=== PATIENT | male | born 1990 ===

== ENCOUNTER 2020-05-11 17:34 | Emergency (ER) | payer SELFPAY ==
--- NOTE | 2020-05-11 17:49 | Emergency Department Report ---
Blank Doc - Documentation Documentation: 29-year-old male that presents with mixed dialysis today. This initial assessment/diagnostic orders/clinical plan/treatment(s) is/are subject to change based on patient's health status, clinical progression and re- assessment by fellow clinical providers in the ED. Further treatment and workup at subsequent clinical providers discretion. Patient/guardians urged not to elope from the ED as their condition may be serious if not clinically assessed and managed. Initial orders include: 1- Patient sent to [facility] for further evaluation and treatment 2- labs
[2020-05-11 18:17] LABS: Basophils # (Auto) 0.1 K/mm3 (0.0-0.1); Basophils % (Auto) 1.1 % (0.0-1.8); Eosinophils # (Auto) 0.1 K/mm3 (0.0-0.4); Eosinophils % (Auto) 0.9 % (0.0-4.3); Hematocrit 33.2 % (35.5-45.6); Hemoglobin 10.7 gm/dl (11.8-15.2); Lymphocytes # (Auto) 1.7 K/mm3 (1.2-5.4); Lymphocytes % (Auto) 18.2 % (13.4-35.0); Mean Corpuscular HGB Conc 32 % (32-34); Mean Corpuscular Volume 80 fl (84-94); Monocytes # (Auto) 0.9 K/mm3 (0.0-0.8); Platelet Count 240 K/mm3 (140-440); Red Blood Count 4.13 M/mm3 (3.65-5.03); Red Cell Distribution Width 15.9 % (13.2-15.2)
[2020-05-11 18:33] LABS: Albumin 3.8 g/dL (3.9-5); Calcium 9.1 mg/dL (8.4-10.2)
--- NOTE | 2020-05-11 20:59 | Emergency Department Report ---
ED General Adult HPI - General Chief complaint: Medical Clearance Stated complaint: NEEDS DIALYSIS Time Seen by Provider: 05/11/20 17:48 Source: patient Mode of arrival: Ambulatory Limitations: No Limitations - History of Present Illness Initial comments: Patient is a 29-year-old male past medical history of end-stage renal disease Greek-speaking patient on dialysis Monday who presents with needing dialysis. Patient has no other complaints no shortness of breath no nausea no vomiting no chest pain. - Related Data Allergies Allergy/AdvReac Type Severity Reaction Status Date / Time No Known Allergies Allergy Unverified 05/11/20 17:51 ED Review of Systems ROS: Stated complaint: NEEDS DIALYSIS Other details as noted in HPI Constitutional: denies: chills, fever Eyes: denies: eye pain, eye discharge, vision change ENT: denies: ear pain, throat pain Respiratory: denies: cough, shortness of breath, wheezing Cardiovascular: denies: chest pain, palpitations Endocrine: no symptoms reported Gastrointestinal: denies: abdominal pain, nausea, diarrhea Genitourinary: denies: urgency, dysuria Musculoskeletal: denies: back pain, joint swelling, arthralgia Skin: denies: rash, lesions Neurological: denies: headache, weakness, paresthesias Psychiatric: denies: anxiety, depression Hematological/Lymphatic: denies: easy bleeding, easy bruising ED Past Medical Hx - Past Medical History Previous Medical History?: Yes Hx Renal Disease: Yes - Surgical History Past Surgical History?: Yes Additional Surgical History: Left leg surgery. dialysis catheter, right chest ED Physical Exam - General Limitations: No Limitations General appearance: alert, in no apparent distress - Head Head exam: Present: atraumatic, normocephalic - Eye Eye exam: Present: normal appearance - ENT ENT exam: Present: mucous membranes moist - Neck Neck exam: Present: normal inspection - Respiratory Respiratory exam: Present: normal lung sounds bilaterally. Absent: respiratory distress - Cardiovascular Cardiovascular Exam: Present: regular rate, normal rhythm. Absent: systolic murmur, diastolic murmur, rubs, gallop - GI/Abdominal GI/Abdominal exam: Present: soft, normal bowel sounds - Rectal Rectal exam: Present: deferred - Extremities Exam Extremities exam: Present: normal inspection - Back Exam Back exam: Present: normal inspection - Neurological Exam Neurological exam: Present: alert, oriented X3 - Psychiatric Psychiatric exam: Present: normal affect, normal mood - Skin Skin exam: Present: warm, dry, intact, normal color. Absent: rash ED Course Vital Signs 05/11/20 17:53 Temperature 97.8 F Respiratory 16 Rate Blood Pressure 133/80 [Right] O2 Sat by Pulse 100 Oximetry - Consultations Consultation #1: 05/11/20 22:[address] Kennedy nephrology . he states that patient does not need criteria to be admitted for dialysis and he must come in the morning to get dialysis. ED Medical Decision Making - Lab Data Result diagrams: 05/11/20 17:55 05/11/20 17:55 Lab Results 05/11/20 05/11/20 Range/Units 17:55 17:55 WBC 9.4 (4.5-11.0) K/mm3 RBC 4.13 (3.65-5.03) M/mm3 Hgb 10.7 L (11.8-15.2) gm/dl Hct 33.2 L (35.5-45.6) % MCV 80 L (84-94) fl MCH 26 L (28-32) pg MCHC 32 (32-34) % RDW 15.9 H (13.2-15.2) % Plt Count 240 (140-440) K/mm3 Lymph % (Auto) 18.2 (13.4-35.0) % Barry % (Auto) 10.0 H (0.0-7.3) % Eos % (Auto) 0.9 (0.0-4.3) % Baso % (Auto) 1.1 (0.0-1.8) % Lymph # 1.7 (1.2-5.4) K/mm3 Barry # 0.9 H (0.0-0.8) K/mm3 Eos # 0.1 (0.0-0.4) K/mm3 Baso # 0.1 (0.0-0.1) K/mm3 Seg Neutrophils % 69.8 (40.0-70.0) % Seg Neutrophils # 6.6 (1.8-7.7) K/mm3 Sodium 136 L (137-145) mmol/L Potassium 4.8 (3.6-5.0) mmol/L Chloride 95.5 L (98-107) mmol/L Carbon Dioxide 24 (22-30) mmol/L Anion Gap 21 mmol/L BUN 59 H (9-20) mg/dL Creatinine 7.4 H (0.8-1.3) mg/dL Estimated GFR 9 ml/min BUN/Creatinine Ratio 8 % Glucose 92 (75-100) mg/dL Calcium 9.1 (8.4-10.2) mg/dL Total Bilirubin 0.30 (0.1-1.2) mg/dL AST 8 (5-40) units/L ALT 9 (7-56) units/L Alkaline Phosphatase 65 (35-129) units/L Total Protein 7.7 (6.3-8.2) g/dL Albumin 3.8 L (3.9-5) g/dL Albumin/Globulin Ratio 1.0 % - Medical Decision Making Chief medical diagnosis: End-stage renal disease differential medical diagnosis: Uremia, volume overload Critical care attestation.: If time is entered above; I have spent that time in minutes in the direct care of this critically ill patient, excluding procedure time. ED Disposition Clinical Impression: ESRD (end stage renal disease) Disposition: DC-01 TO HOME OR SELFCARE Is pt being admited?: No Does the pt Need Aspirin: No Condition: Stable Referrals: PRIMARY CARE, [Primary Care Provider] - 3-5 Days
--- NOTE | 2020-05-11 22:29 | XRay Report ---
CHEST 1 VIEW 05/11/2020 10:15 PM INDICATION / CLINICAL INFORMATION: cough. COMPARISON: None available. FINDINGS: SUPPORT DEVICES: Right-sided dual-lumen central venous catheter tip projects over the cavoatrial junc tion. HEART / MEDIASTINUM: Borderline cardiomegaly. LUNGS / PLEURA: No significant pulmonary or pleural abnormality. No pneumothorax. ADDITIONAL FINDINGS: No significant additional findings. IMPRESSION: Borderline cardiomegaly without acute cardiopulmonary abnormality. Signer Name: Michele Lara MD Signed: 05/11/2020 10:25 PM Workstation Name: [id number]
[2020-05-11 23:59] VITALS: BP 130/67
== END 2020-05-11 23:40 | disposition home or self-care (01) ==
LOC: ED 17:34
DX: N18.6 End stage renal disease (principal)
CPT/HCPCS: 36415; 71045; 80053; 85025; 99283

== ENCOUNTER 2020-05-12 09:31 | Emergency (ER) | payer SELFPAY ==
[2020-05-12 10:29] LABS: Hematocrit 34.1 % (35.5-45.6); Mean Corpuscular HGB Conc 32 % (32-34); Mean Corpuscular Volume 79 fl (84-94); Platelet Count 223 K/mm3 (140-440); Red Blood Count 4.34 M/mm3 (3.65-5.03); Red Cell Distribution Width 15.9 % (13.2-15.2)
[2020-05-12 10:51] LABS: Albumin 3.9 g/dL (3.9-5); Calcium 9.5 mg/dL (8.4-10.2)
--- NOTE | 2020-05-12 11:56 | Emergency Department Report ---
HPI - General Chief Complaint: Medical Clearance Time Seen by Provider: 05/12/20 11:46 - HPI HPI: Room 25 The patient is a 29-year-old male presenting with a chief complaint of end-stage renal disease. Patient states he does not have insurance or electronic gluer and was last dialyzed 05/08/2020. The patient came to the ED yesterday and was told he did not meet criteria for emergent dialysis. The patient states he was instructed to return to the emergency department this morning. Patient denies any complaints currently ED Past Medical Hx - Past Medical History Previous Medical History?: Yes Hx Hypertension: Yes Hx Renal Disease: Yes - Surgical History Past Surgical History?: Yes Additional Surgical History: Left leg surgery. dialysis catheter, right chest - Family History Family history: no significant - Social History Smoking Status: Never Smoker Substance Use Type: None (Denies illicit drug use) ED Review of Systems ROS: Stated complaint: DIALYSIS Other details as noted in HPI Constitutional: no symptoms reported Respiratory: no symptoms reported Cardiovascular: denies: chest pain Endocrine: no symptoms reported Gastrointestinal: denies: abdominal pain Physical Exam - Physical Exam Vital Signs: Vital Signs 05/12/20 05/12/20 09:37 11:50 Temperature 98.4 F 98.6 F Pulse Rate 76 75 Respiratory 18 18 Rate Blood Pressure 128/89 Blood Pressure 132/90 [Right] O2 Sat by Pulse 99 99 Oximetry Physical Exam: GENERAL: The patient is well-developed well-nourished male lying on stretcher not appearing to be in acute distress. [] HEENT: Normocephalic. Atraumatic. Extraocular motions are intact. Patient has moist mucous membranes. NECK: Supple. Trachea midline CHEST/LUNGS: Clear to auscultation. There is no respiratory distress noted. HEART/CARDIOVASCULAR: Regular. There is no tachycardia. There is no gallop rub or murmur. ABDOMEN: Abdomen is soft, nontender. Patient has normal bowel sounds. There is no abdominal distention. SKIN: There is no rash. There is no edema. There is no diaphoresis. NEURO: The patient is awake, alert, and oriented. The patient is cooperative. The patient has normal speech MUSCULOSKELETAL: There is no evidence of acute injury. ED Course Vital Signs 05/12/20 05/12/20 09:37 11:50 Temperature 98.4 F 98.6 F Pulse Rate 76 75 Respiratory 18 18 Rate Blood Pressure 128/89 Blood Pressure 132/90 [Right] O2 Sat by Pulse 99 99 Oximetry - Reevaluation(s) Reevaluation #1: 05/12/20 19:07 Status post hemodialysis patient is without complaint. - Consultations Consultation #1: 05/12/20 11:54 Nephrology paged-Case discussed with Dr. Hale. Will arrange for hemodialysis ED Medical Decision Making - Lab Data Result diagrams: 05/12/20 10:03 05/12/20 10:03 Laboratory Tests 05/12/20 05/12/20 05/12/20 10:03 10:03 14:10 WBC 7.4 RBC 4.34 Hgb 11.0 L Hct 34.1 L MCV 79 L MCH 26 L MCHC 32 RDW 15.9 H Plt Count 223 Sodium 139 Potassium 4.3 Chloride 98.0 Carbon Dioxide 23 Anion Gap 22 BUN 63 H Creatinine 8.4 H Estimated GFR 7 BUN/Creatinine Ratio 8 Glucose 92 Calcium 9.5 Total Bilirubin 0.40 AST 8 ALT 8 Alkaline Phosphatase 67 Total Protein 8.1 Albumin 3.9 Albumin/Globulin Ratio 0.9 Hepatitis A IgM Ab Non-reactive Hep Bs Antigen Non-reactive Hep B Core IgM Ab Non-reactive Hepatitis C Antibody Non-reactive - Differential Diagnosis ESRD, hyperkalemia, uremia Critical care attestation.: If time is entered above; I have spent that time in minutes in the direct care of this critically ill patient, excluding procedure time. ED Disposition Clinical Impression: ESRD (end stage renal disease) Disposition: DC-01 TO HOME OR SELFCARE Is pt being admited?: No Does the pt Need Aspirin: No Condition: Stable Instructions: Chronic Kidney Disease (ED) Additional Instructions: Return to the emergency department should you develop worsening symptoms, inability to tolerate food or liquids, high fever or any other concerns Referrals: NEGRITO RUBIO MD [Primary Care Provider] - 3-5 Days Time of Disposition: 19:07
[2020-05-12] MEDS ORDERED: SODIUM CHLORIDE 0.9% 100 ML IV PRN (12:24)
[2020-05-12] MEDS ORDERED: HEPARIN 10,000 UNITS/10 ML VIAL IV PRN (12:24)
[2020-05-12 15:08] LABS: Hepatitis B Surface Antigen Non-Reactive (Negative); Hepatitis C Virus Antibody Non-Reactive (NonReactive)
[2020-05-12 20:19] VITALS: BP 145/90
== END 2020-05-12 20:19 | disposition home or self-care (01) ==
LOC: ED 09:31
DX: I12.0 Hypertensive chronic kidney disease with stage 5 chronic kidney disease or end stage renal disease (principal); Z98.890 Other specified postprocedural states
CPT/HCPCS: 36415; 80053; 80074; 85027; 99283

== ENCOUNTER 2021-07-01 09:45 | Observation (INO) | payer SELFPAY ==
--- NOTE | 2021-07-01 09:53 | Event Note ---
Date: 07/01/21 EMS documentation not available at time of chart dictation Verbal report received from emergency medical service Medical screening examination: 30-year-old gentleman, with a history of end- stage renal disease on hemodialysis, typically goes to [place], presents to the ER today with a complaint of painless shortness of breath. The patient is found to be tachypneic and has lower extremity edema patient has clinical evidence of fluid overload. Place patient on environmental monitoring specialist. Reconcile home medications. Obtain EKG, laboratory studies, x-ray the chest, Anticipate admission for fluid overload. The patient does not recall the name of his primary implementation engineer, but he believes that he goes to [place] for hemodialysis.
--- NOTE | 2021-07-01 10:22 | Emergency Department Report ---
ED Shortness of Breath HPI - General Chief Complaint: Dyspnea/Respdistress Stated Complaint: SOB,HYPERTENSIVE Time Seen by Provider: 07/01/21 09:59 Source: patient, EMS Mode of arrival: Stretcher Limitations: No Limitations - History of Present Illness Initial Comments: CC: "I can't breathe. My pressure is high." HPI: This is a 30 yo male with hx of ESRD on HD, HTN who presents with shortness of breath, bilateral lower extremity swelling and elevated blood pressure. He has not had dialysis in 6 months. He has dry cough. He denies fever, chest pain. He has nausea. He has received vaccine against COVID 19. Previously received hemodialysis at [facility]. He is having a hard time sleeping due to shortness of breath. I used [employer] language line court interpreter to obtain history and provide plan of care. MD Complaint: shortness of breath -: Gradual, month(s) (Several months) Severity: severe Consistency: constant Improves With: oxygen, upright position Worsens With: other (Laying flat) Known History Of: other (End-stage renal disease noncompliant with hemodialysis) Context: medication noncompliance Associated Symptoms: other (Bilateral lower extremity swelling) - Related Data Home Medications Medication Instructions Recorded Confirmed Last Taken Calcium Acetate 667 mg PO BID 07/01/21 07/01/21 Unknown NIFEdipine [Nifedipine ER] 90 mg PO DAILY 07/01/21 07/01/21 Unknown amLODIPine [Norvasc] 10 mg PO DAILY 07/01/21 07/01/21 Unknown carvediloL [Coreg] 12.5 mg PO BID 07/01/21 07/01/21 Unknown Allergies Allergy/AdvReac Type Severity Reaction Status Date / Time No Known Allergies Allergy Unverified 05/11/20 17:51 ED Review of Systems ROS: Stated complaint: SOB,HYPERTENSIVE Other details as noted in HPI Comment: All other systems reviewed and negative Constitutional: denies: chills, fever, malaise Respiratory: shortness of breath. denies: cough Cardiovascular: edema Gastrointestinal: denies: abdominal pain ED Past Medical Hx - Past Medical History Previous Medical History?: Yes Hx Hypertension: Yes Hx Renal Disease: Yes - Surgical History Past Surgical History?: Yes Additional Surgical History: Left leg surgery. dialysis catheter, right chest - Social History Smoking Status: Never Smoker Substance Use Type: None (Denies illicit drug use) - Medications Home Medications: Home Medications Medication Instructions Recorded Confirmed Last Taken Type Calcium Acetate 667 mg PO BID 07/01/21 07/01/21 Unknown History NIFEdipine [Nifedipine ER] 90 mg PO DAILY 07/01/21 07/01/21 Unknown History amLODIPine [Norvasc] 10 mg PO DAILY 07/01/21 07/01/21 Unknown History carvediloL [Coreg] 12.5 mg PO BID 07/01/21 07/01/21 Unknown History ED Physical Exam - General Limitations: No Limitations General appearance: alert, in distress, other (Tachypneic pale moderate work of breathing) - Head Head exam: Present: atraumatic, normocephalic - Eye Eye exam: Present: normal appearance - ENT ENT exam: Present: mucous membranes moist - Neck Neck exam: Present: normal inspection, full ROM. Absent: tenderness, meningismus - Respiratory Respiratory exam: Present: respiratory distress, rales, decreased breath sounds. Absent: wheezes, stridor - Cardiovascular Cardiovascular Exam: Present: normal rhythm, tachycardia, normal heart sounds. Absent: systolic murmur, diastolic murmur, rubs, gallop - GI/Abdominal GI/Abdominal exam: Present: soft. Absent: distended, tenderness, guarding, rebound - Extremities Exam Extremities exam: Present: other (Puffy 4+ pitting edema significant from groin to feet) - Neurological Exam Neurological exam: Present: alert, oriented X3 - Psychiatric Psychiatric exam: Present: normal affect, normal mood - Skin Skin exam: Present: warm, dry, intact, pallor ED Course Vital Signs 07/01/21 07/01/21 07/01/21 09:51 09:55 10:01 Temperature 98.7 F Pulse Rate 102 H Respiratory 18 11 L 20 Rate Blood Pressure 181/141 O2 Sat by Pulse 99 98 Oximetry 07/01/21 07/01/21 07/01/21 10:15 10:18 11:09 Temperature Pulse Rate 102 H Respiratory 25 H Rate Blood Pressure 190/139 175/110 O2 Sat by Pulse 95 20 L Oximetry ED Medical Decision Making - Lab Data Result diagrams: 07/01/21 10:02 07/01/21 10:02 - EKG Data 07/01/21 10:37 EKG obtained 1012 EKG interpreted by me Rate 100 bpm sinus tachycardia normal axis normal intervals no ST elevation nonspecific T wave pattern - Radiology Data Radiology results: report reviewed Patient Name: KARLO VELASQUEZ Gender: Male Date of : 1990 Referring Provider: CHAYITO BHAT Organization: [facility] Accession Number: [id number] Requested Date: July 01, 2021 09:51 Report Status: Final Requested Procedure: 1 Procedure Description: XR chest 1V ap Modality: XR Findings Reporting MD: Rancho Wallace Dictation Time: July 01, 2021 09:53 Buffing Wheel Inspector: Not available Claims Support Specialist Date: CHEST 1 VIEW 07/01/2021 9:39 AM INDICATION / CLINICAL INFORMATION: Dyspnea. COMPARISON: 05/11/2020 FINDINGS: SUPPORT DEVICES: Stable, satisfactory device positioning. HEART / MEDIASTINUM: Cardiomegaly LUNGS / PLEURA: Mild increased vascularity No pneumothorax. ADDITIONAL FINDINGS: No significant additional findings. IMPRESSION: 1. Cardiomegaly with increased pulmonary vascularity Signer Name: Rancho Wallace MD Signed: 07/01/2021 9:53 AM Workstation Name: [id number] - Medical Decision Making 1. Hypervolemia due to medication noncompliance leading to respiratory failure hypoxia, oxygen saturation 91% semiupright position. Uremic complications include hyperkalemia pulmonary edema. EKG without signs of hyperkalemia. 2. Hypertensive emergency: IV labetalol provided in the emergency department, I spoke with Jaymie nurse juvenalitioner on behalf of for bologna lacer Dr. Cortes. She will arrange for emergent dialysis. Patient will be admitted to the hospitalist service Critical Care Time: Yes Critical care time in (mins) excluding proc time.: 40 Critical care attestation.: If time is entered above; I have spent that time in minutes in the direct care of this critically ill patient, excluding procedure time. 40 minutes of critical care time excluding procedures were used in the care of the patient. I discussed treatment plan with the nursing team members. I reviewed electronic record. I kept the family members informed. Patient required multiple interventions and reassessments. I was concerned for imminent airway compromise. Concern for hyperkalemia which could cause lethal arrhythmia. ED Disposition Clinical Impression: Acute respiratory failure with hypoxia, Hypertensive emergency, End stage renal disease on dialysis Disposition: ADMITTED INPATIENT Is pt being admited?: Yes Does the pt Need Aspirin: No Condition: Fair Instructions: Hypertension (ED)
[2021-07-01 10:24] LABS: Basophils # (Auto) 0.1 K/mm3 (0.0-0.1); Basophils % (Auto) 1.7 % (0.0-1.8); Hemoglobin 8.1 gm/dl (11.8-15.2); Lymphocytes # (Auto) 0.7 K/mm3 (1.2-5.4); Lymphocytes % (Auto) 17.3 % (13.4-35.0); Mean Corpuscular HGB Conc 32 % (32-34); Mean Corpuscular Volume 84 fl (84-94); Monocytes # (Auto) 0.5 K/mm3 (0.0-0.8); Monocytes % (Auto) 12.2 % (0.0-7.3); Platelet Count 113 K/mm3 (140-440); Red Blood Count 2.98 M/mm3 (3.65-5.03); Red Cell Distribution Width 16.3 % (13.2-15.2)
[2021-07-01 10:37] LABS: Calcium 8.8 mg/dL (8.4-10.2)
--- NOTE | 2021-07-01 10:57 | XRay Report ---
CHEST 1 VIEW 07/01/2021 9:39 AM INDICATION / CLINICAL INFORMATION: Dyspnea. COMPARISON: 05/11/2020 FINDINGS: SUPPORT DEVICES: Stable, satisfactory device positioning. HEART / MEDIASTINUM: Cardiomegaly LUNGS / PLEURA: Mild increased vascularity No pneumothorax. ADDITIONAL FINDINGS: No significant additional findings. IMPRESSION: 1. Cardiomegaly with increased pulmonary vascularity Signer Name: Rancho Wallace MD Signed: 07/01/2021 10:53 AM Workstation Name: [id number]
[2021-07-01 14:00] LABS: Hepatitis C Virus Antibody Non-Reactive (NonReactive)
[2021-07-01 14:07] LABS: Hepatitis B Surface Antigen Non-Reactive (Negative)
[2021-07-01] MEDS ORDERED: cloNIDine 0.1 MG TAB PO PRN (18:18)
[2021-07-01] MEDS ORDERED: SODIUM CHLORIDE 0.9% 100 ML IV PRN ×2 (18:18→18:21)
[2021-07-01] MEDS ORDERED: hydrALAZINE 20 MG/1 ML INJ ONE (19:52)
[2021-07-01] MEDS ORDERED: hydrALAZINE 20 MG/1 ML INJ IV ONE (19:57)
[2021-07-01] MEDS ORDERED: ONDANSETRON 4 MG/2 ML INJ IV PRN (20:07)
[2021-07-01] MEDS ORDERED: MORPHINE 2 MG/1 ML INJ IV PRN (20:07)
[2021-07-01] MEDS ORDERED: METOCLOPRAMIDE 10 MG/2 ML INJ IV PRN ×2 (20:07→20:17)
[2021-07-01] MEDS ORDERED: HYDROmorphone 1 MG/1 ML INJ IV PRN (20:07)
[2021-07-01] MEDS ORDERED: ACETAMINOPHEN 325 MG TAB PO PRN (20:07)
--- NOTE | 2021-07-01 20:14 | History and Physical Report ---
History of Present Illness Date of examination: 07/01/21 Date of admission: 07/01/21 11:18 History of present illness: HPI: This is a 30 yo male with hx of ESRD on HD, HTN who presents with sh ortness of breath, bilateral lower extremity swelling and elevated blood pressure. He has not had dialysis in 6 months. He has dry cough. He denies fever, chest pain. He has nausea. He has received vaccine against COVID 19. Previously received hemodialysis at [facility]. He is having a hard time sleeping due to shortness of breath. I used [place] [employer] language line centrifugal separator to obtain history and provide plan of care. MD Complaint: shortness of breath -: Gradual, month(s) (Several months) Severity: severe Consistency: constant Improves With: oxygen, upright position Worsens With: other (Laying flat) Known History Of: other (End-stage renal disease noncompliant with hemodialysis) Context: medication noncompliance Associated Symptoms: other (Bilateral lower extremity swelling) - Related Data Home Medications Medication Instructions Recorded Confirmed Last Taken Calcium Acetate 667 mg PO BID 07/01/21 07/01/21 Unknown NIFEdipine [Nifedipine ER] 90 mg PO DAILY 07/01/21 07/01/21 Unknown amLODIPine [Norvasc] 10 mg PO DAILY 07/01/21 07/01/21 Unknown carvediloL [Coreg] 12.5 mg PO BID 07/01/21 07/01/21 Unknown Allergies Allergy/AdvReac Type Severity Reaction Status Date / Time No Known Allergies Allergy Unverified 05/11/20 17:51 - Past Medical History Previous Medical History?: Yes Hx Hypertension: Yes Hx Renal Disease: Yes - Surgical History Past Surgical History?: Yes Additional Surgical History: Left leg surgery. dialysis catheter, right chest - Social History Smoking Status: Never Smoker Substance Use Type: None (Denies illicit drug use) - Medications Home Medications: Home Medications Medication Instructions Recorded Confirmed Last Taken Type Calcium Acetate 667 mg PO BID 07/01/21 07/01/21 Unknown History NIFEdipine [Nifedipine ER] 90 mg PO DAILY 07/01/21 07/01/21 Unknown History amLODIPine [Norvasc] 10 mg PO DAILY 07/01/21 07/01/21 Unknown History carvediloL [Coreg] 12.5 mg PO BID 07/01/21 07/01/21 Unknown History Review of Systems ROS: Stated complaint: SOB,HYPERTENSIVE Other details as noted in HPI Comment: All other systems reviewed and negative Constitutional: denies: chills, fever, malaise Respiratory: shortness of breath. denies: cough Cardiovascular: edema Gastrointestinal: denies: abdominal pain Medications and Allergies Allergies Allergy/AdvReac Type Severity Reaction Status Date / Time No Known Allergies Allergy Unverified 05/11/20 17:51 Home Medications Medication Instructions Recorded Confirmed Last Taken Type Calcium Acetate 667 mg PO BID 07/01/21 07/01/21 Unknown History NIFEdipine [Nifedipine ER] 90 mg PO DAILY 07/01/21 07/01/21 Unknown History amLODIPine [Norvasc] 10 mg PO DAILY 07/01/21 07/01/21 Unknown History carvediloL [Coreg] 12.5 mg PO BID 07/01/21 07/01/21 Unknown History Active Meds: Active Medications Clonidine HCl (Clonidine 0.1 Mg Tab) 0.1 mg PO HAMMAD PRN PRN Reason: Hypertension Sodium Chloride (Nacl 0.9%) 100 mls @ 999 mls/hr IV HAMMAD PRN PRN Reason: Hypotension Exam - Constitutional Vitals: Temp Pulse Resp BP Pulse Ox 98.7 F 100 H 22 187/135 95 07/01/21 09:55 07/01/21 19:42 07/01/21 19:42 07/01/21 19:58 07/01/21 19:42 Results - Labs CBC & Chem 7: 07/02/21 04:41 07/02/21 04:41 Labs: Laboratory Last Values WBC 3.9 K/mm3 (4.5-11.0) L 07/01/21 10:02 RBC 2.98 M/mm3 (3.65-5.03) L 07/01/21 10:02 Hgb 8.1 gm/dl (11.8-15.2) L 07/01/21 10:02 Hct 25.0 % (35.5-45.6) L 07/01/21 10:02 MCV 84 fl (84-94) 07/01/21 10:02 MCH 27 pg (28-32) L 07/01/21 10:02 MCHC 32 % (32-34) 07/01/21 10:02 RDW 16.3 % (13.2-15.2) H 07/01/21 10:02 Plt Count 113 K/mm3 (140-440) L 07/01/21 10:02 Lymph % (Auto) 17.3 % (13.4-35.0) 07/01/21 10:02 [place] % (Auto) 12.2 % (0.0-7.3) H 07/01/21 10:02 Eos % (Auto) 1.0 % (0.0-4.3) 07/01/21 10:02 Baso % (Auto) 1.7 % (0.0-1.8) 07/01/21 10:02 Lymph # (Auto) 0.7 K/mm3 (1.2-5.4) L 07/01/21 10:02 [place] # (Auto) 0.5 K/mm3 (0.0-0.8) 07/01/21 10:02 Eos # (Auto) 0.0 K/mm3 (0.0-0.4) 07/01/21 10:02 Baso # (Auto) 0.1 K/mm3 (0.0-0.1) 07/01/21 10:02 Seg Neutrophils % 67.8 % (40.0-70.0) 07/01/21 10:02 Seg Neutrophils # 2.7 K/mm3 (1.8-7.7) 07/01/21 10:02 Sodium 139 mmol/L (137-145) 07/01/21 10:02 Potassium 5.7 mmol/L (3.6-5.0) H 07/01/21 10:02 Chloride 99.5 mmol/L (98-107) 07/01/21 10:02 Carbon Dioxide 21 mmol/L (22-30) L 07/01/21 10:02 Anion Gap 24 mmol/L 07/01/21 10:02 BUN 83 mg/dL (9-20) H 07/01/21 10:02 Creatinine 12.8 mg/dL (0.8-1.3) H 07/01/21 10:02 Estimated GFR 5 ml/min 07/01/21 10:02 BUN/Creatinine Ratio 6 % 07/01/21 10:02 Glucose 102 mg/dL (75-100) H 07/01/21 10:02 Calcium 8.8 mg/dL (8.4-10.2) 07/01/21 10:02 Hepatitis A IgM Ab Non-reactive (NonReactive) 07/01/21 12:22 Hep Bs Antigen Non-reactive (Negative) 07/01/21 12:22 Hep B Core IgM Ab Non-reactive (NonReactive) 07/01/21 12:22 Hepatitis C Antibody Non-reactive (NonReactive) 07/01/21 12:22 Short CBC 07/01/21 07/02/21 Range/Units 10:02 04:41 WBC 3.9 L 5.8 (4.5-11.0) K/mm3 Hgb 8.1 L 8.0 L (11.8-15.2) gm/dl Hct 25.0 L 24.2 L (35.5-45.6) % Plt Count 113 L 127 L (140-440) K/mm3 BMP 07/01/21 07/02/21 10:02 04:41 Sodium 139 140 Potassium 5.7 H 5.2 H Chloride 99.5 98.5 Carbon Dioxide 21 L 22 BUN 83 H 62 H Creatinine 12.8 H 11.5 H Glucose 102 H 99 Calcium 8.8 8.7 Liver Function 07/02/21 Range/Units 04:41 Total Bilirubin 0.70 (0.1-1.2) mg/dL AST 27 (5-40) units/L ALT 27 (7-56) units/L Alkaline Phosphatase 68 (35-129) units/L Albumin 3.4 L (3.9-5) g/dL Assessment and Plan Advance Directives: Yes (Full code) VTE prophylaxis?: Chemical Plan of care discussed with patient/family: Yes - Patient Problems (1) Hypertensive emergency Current Visit: Yes Status: Acute Plan to address problem: Patient noncompliant with medications Patient initiated on carvedilol, nifedipine XL 90 mg once a day and valsartan 160 mg every 12 hours a new medication IV hydralazine 10 mg every 3 as needed for blood pressure more than 160/100 (2) End stage renal disease on dialysis Current Visit: Yes Status: Chronic Plan to address problem: Patient went in for emergent hemodialysis (3) DVT prophylaxis Current Visit: Yes Status: Acute Plan to address problem: On anticoagulation and GI prophylaxis (4) Hyperkalemia Current Visit: Yes Status: Acute Plan to address problem: Patient went to emergent hemodialysis IV calcium gluconate given
[2021-07-01] MEDS ORDERED: NON-FORMULARY EACH (Nifedipine [Nifedipine Er] 90 MG Tablet.Er) PO SCH (20:15)
--- NOTE | 2021-07-01 20:19 | Consultation ---
History of Present Illness - History of Present Illness #End-stage renal disease: Patient is currently on maintenance hemodialysis but has not been dialyzed well given that her BUN creatinine is significantly elevated we will do a short treatment today and possibly another one tomorrow to avoid dialysis disequilibrium though unlikely in chronic dialysis patient but possibleGiven the severity of BUN 2-3 L ultrafiltration today as tolerated discussed with dialysis nurse Will monitor dialysis-related labs periodically. Hemodialysis nurse to ultrafiltrate as tolerated, systolic blood pressure must be kept above 100, heart rate below 100 #Medication management: Reviewed today #Electrolyte and volume: patient does have generalized anasarca-like picture ultrafiltration today on hemodialysis over the next 2-3 days. Continuously Will monitor and follow #Dialysis Access: has not been noted to be an issue according to dialysis nurse working well #Anemia in ESRD: needs monitoring and close follow-up To monitor hemoglobin and hematocrit periodically erythropoietin as needed, #Bone mineral disorder and secondary hyperparathyroidism: Goal phosphorus under 5-1/2 PTH under 600 Monitor phosphorus and PTH level periodically, #Cardiovascular:generalized anasarca volume overload #Diet and nutrition: Nepro, multivitamin Medications and Allergies Allergies Allergy/AdvReac Type Severity Reaction Status Date / Time No Known Allergies Allergy Unverified 05/11/20 17:51 Home Medications Medication Instructions Recorded Confirmed Last Taken Type Calcium Acetate 667 mg PO BID 07/01/21 07/01/21 Unknown History NIFEdipine [Nifedipine ER] 90 mg PO DAILY 07/01/21 07/01/21 Unknown History amLODIPine [Norvasc] 10 mg PO DAILY 07/01/21 07/01/21 Unknown History carvediloL [Coreg] 12.5 mg PO BID 07/01/21 07/01/21 Unknown History Active Meds: Active Medications Acetaminophen (Acetaminophen 325 Mg Tab) 650 mg PO Q4H PRN PRN Reason: Pain MILD(1-3)/Fever >100.5/PRAKASH Calcium Acetate (Calcium Acetate 667 Mg Cap) 667 mg PO BID@0800,1700 [facility] Carvedilol (Carvedilol 12.5 Mg Tab) 12.5 mg PO BID [facility] Clonidine HCl (Clonidine 0.1 Mg Tab) 0.1 mg PO HAMMAD PRN PRN Reason: Hypertension Famotidine (Famotidine 10 Mg Tab) 10 mg PO BID [facility] Heparin Sodium (Porcine) (Heparin 5,000 Unit/1 Ml Vial) 5,000 unit SUB-Q Q12HR MARGARET Hydromorphone HCl (Hydromorphone 1 Mg/1 Ml Inj) 0.5 mg IV Q3H PRN PRN Reason: Pain , Severe (7-10) Sodium Chloride (Nacl 0.9%) 100 mls @ 999 mls/hr IV HAMMAD PRN PRN Reason: Hypotension Metoclopramide HCl (Metoclopramide 10 Mg/2 Ml Inj) 2.5 mg IV Q6H PRN PRN Reason: Nausea And Vomiting Morphine Sulfate (Morphine 2 Mg/1 Ml Inj) 2 mg IV Q4H PRN PRN Reason: Pain, Moderate (4-6) Nifedipine (Nifedipine Xl 90 Mg Tab) 90 mg PO DAILY [facility] Ondansetron HCl (Ondansetron 4 Mg/2 Ml Inj) 4 mg IV Q8H PRN PRN Reason: Nausea And Vomiting Sodium Chloride (Sodium Chloride 0.9% 10 Ml Flush Syringe) 10 ml IV BID [facility] Sodium Chloride (Sodium Chloride 0.9% 10 Ml Flush Syringe) 10 ml IV PRN PRN PRN Reason: LINE FLUSH Valsartan (Valsartan 160mg Tab) 160 mg PO BID [facility] Exam - Vital Signs Vital signs: Vital Signs Resp Pulse Ox 18 99 07/01/21 09:51 07/01/21 09:51 Results - Lab Results 07/01/21 10:02 07/01/21 10:02 Most recent lab results Calcium 8.8 mg/dL (8.4-10.2) 07/01/21 10:02
[2021-07-01] MEDS: carvediloL 12.5 MG TAB PO SCH (21:46)
[2021-07-01] MEDS: VALSARTAN 160MG TAB PO SCH (21:47)
[2021-07-01] MEDS: NIFEdipine XL 90 MG TAB PO SCH (21:47)
[2021-07-01] MEDS: HEPARIN 5,000 UNIT/1 ML VIAL SUB-Q SCH (21:47)
[2021-07-01] MEDS: FAMOTIDINE 10 MG TAB PO SCH (21:48)
[2021-07-01] MEDS ORDERED: NON-FORMULARY EACH (Calcium Acetate [Calcium Acetate] 667 MG Tablet) PO SCH (22:00)
[2021-07-02] MEDS ORDERED: hydrALAZINE 20 MG/1 ML INJ IV PRN (02:00)
[2021-07-02 05:21] LABS: Basophils # (Auto) 0.1 K/mm3 (0.0-0.1); Basophils % (Auto) 1.3 % (0.0-1.8); Eosinophils % (Auto) 0.2 % (0.0-4.3); Hematocrit 24.2 % (35.5-45.6); Lymphocytes # (Auto) 0.6 K/mm3 (1.2-5.4); Lymphocytes % (Auto) 10.6 % (13.4-35.0); Mean Corpuscular HGB Conc 33 % (32-34); Mean Corpuscular Volume 83 fl (84-94); Monocytes # (Auto) 0.6 K/mm3 (0.0-0.8); Platelet Count 127 K/mm3 (140-440); Red Blood Count 2.92 M/mm3 (3.65-5.03); Red Cell Distribution Width 15.9 % (13.2-15.2)
[2021-07-02 05:38] LABS: Albumin 3.4 g/dL (3.9-5); Calcium 8.7 mg/dL (8.4-10.2)
--- NOTE | 2021-07-02 07:36 | Progress Note ---
Assessment and Plan - Patient Problems (1) Hypertensive emergency Current Visit: Yes Status: Acute Plan to address problem: Patient noncompliant with medications Patient initiated on carvedilol, nifedipine XL 90 mg once a day and valsartan 160 mg every 12 hours a new medication IV hydralazine 10 mg every 3 as needed for blood pressure more than 160/100 (2) End stage renal disease on dialysis Current Visit: Yes Status: Chronic Plan to address problem: Patient went in for emergent hemodialysis (3) Hyperkalemia Current Visit: Yes Status: Acute Plan to address problem: Patient went to emergent hemodialysis IV calcium gluconate given (4) DVT prophylaxis Current Visit: Yes Status: Acute Plan to address problem: On anticoagulation and GI prophylaxis Hospitalist Physical - Constitutional Vitals: Temp Pulse Resp BP Pulse Ox 99.3 F 89 18 103/60 93 07/02/21 04:00 07/02/21 04:00 07/02/21 04:00 07/02/21 04:00 07/02/21 04:00 Results - Labs CBC & Chem 7: 07/02/21 04:41 07/02/21 04:41 Labs: Laboratory Last Values WBC 5.8 K/mm3 (4.5-11.0) 07/02/21 04:41 RBC 2.92 M/mm3 (3.65-5.03) L 07/02/21 04:41 Hgb 8.0 gm/dl (11.8-15.2) L 07/02/21 04:41 Hct 24.2 % (35.5-45.6) L 07/02/21 04:41 MCV 83 fl (84-94) L 07/02/21 04:41 MCH 27 pg (28-32) L 07/02/21 04:41 MCHC 33 % (32-34) 07/02/21 04:41 RDW 15.9 % (13.2-15.2) H 07/02/21 04:41 Plt Count 127 K/mm3 (140-440) L 07/02/21 04:41 Lymph % (Auto) 10.6 % (13.4-35.0) L 07/02/21 04:41 [place] % (Auto) 11.0 % (0.0-7.3) H 07/02/21 04:41 Eos % (Auto) 0.2 % (0.0-4.3) 07/02/21 04:41 Baso % (Auto) 1.3 % (0.0-1.8) 07/02/21 04:41 Lymph # (Auto) 0.6 K/mm3 (1.2-5.4) L 07/02/21 04:41 [place] # (Auto) 0.6 K/mm3 (0.0-0.8) 07/02/21 04:41 Eos # (Auto) 0.0 K/mm3 (0.0-0.4) 07/02/21 04:41 Baso # (Auto) 0.1 K/mm3 (0.0-0.1) 07/02/21 04:41 Seg Neutrophils % 76.9 % (40.0-70.0) H 07/02/21 04:41 Seg Neutrophils # 4.5 K/mm3 (1.8-7.7) 07/02/21 04:41 Sodium 140 mmol/L (137-145) 07/02/21 04:41 Potassium 5.2 mmol/L (3.6-5.0) H 07/02/21 04:41 Chloride 98.5 mmol/L (98-107) 07/02/21 04:41 Carbon Dioxide 22 mmol/L (22-30) 07/02/21 04:41 Anion Gap 25 mmol/L 07/02/21 04:41 BUN 62 mg/dL (9-20) H 07/02/21 04:41 Creatinine 11.5 mg/dL (0.8-1.3) H 07/02/21 04:41 Estimated GFR 5 ml/min 07/02/21 04:41 BUN/Creatinine Ratio 5 % 07/02/21 04:41 Glucose 99 mg/dL (75-100) 07/02/21 04:41 Hemoglobin A1c 4.1 % (4-6) 07/02/21 04:41 Calcium 8.7 mg/dL (8.4-10.2) 07/02/21 04:41 Total Bilirubin 0.70 mg/dL (0.1-1.2) 07/02/21 04:41 AST 27 units/L (5-40) 07/02/21 04:41 ALT 27 units/L (7-56) 07/02/21 04:41 Alkaline Phosphatase 68 units/L (35-129) 07/02/21 04:41 Total Protein 6.3 g/dL (6.3-8.2) 07/02/21 04:41 Albumin 3.4 g/dL (3.9-5) L 07/02/21 04:41 Albumin/Globulin Ratio 1.2 % 07/02/21 04:41 Hepatitis A IgM Ab Non-reactive (NonReactive) 07/01/21 12:22 Hep Bs Antigen Non-reactive (Negative) 07/01/21 12:22 Hep B Core IgM Ab Non-reactive (NonReactive) 07/01/21 12:22 Hepatitis C Antibody Non-reactive (NonReactive) 07/01/21 12:22 Vogel/IV: Voiding Method Urinal Active Medications - Current Medications Current Medications: Generic Name Dose Route Start Last Admin Trade Name Freq PRN Reason Stop Dose Admin Acetaminophen 650 mg 07/01/21 20:07 Acetaminophen 325 Mg Tab PO Q4H PRN Pain MILD(1-3)/Fever >100.5/PRAKASH Calcium Acetate 667 mg 07/02/21 08:00 Calcium Acetate 667 Mg Cap PO BID@0800,1700 [facility] Carvedilol 12.5 mg 07/01/21 20:20 07/01/21 21:46 Carvedilol 12.5 Mg Tab PO 12.5 mg BID MARGARET Administration Clonidine HCl 0.1 mg 07/01/21 18:18 Clonidine 0.1 Mg Tab PO HAMMAD PRN Hypertension Famotidine 10 mg 07/01/21 22:00 07/01/21 21:48 Famotidine 10 Mg Tab PO 10 mg BID MARGARET Administration Heparin Sodium (Porcine) 5,000 unit 07/01/21 22:00 07/01/21 21:47 Heparin 5,000 Unit/1 Ml Vial SUB-Q 5,000 unit Q12HR MARGARET Administration Hydralazine HCl 10 mg 07/02/21 02:00 07/02/21 02:08 Hydralazine 20 Mg/1 Ml Inj IV 10 mg Q6HR PRN Administration Blood Pressure Hydromorphone HCl 0.5 mg 07/01/21 20:07 07/01/21 21:58 Hydromorphone 1 Mg/1 Ml Inj IV 0.5 mg Q3H PRN Administration Pain , Severe (7-10) Sodium Chloride 100 mls @ 999 mls/hr 07/01/21 18:18 Nacl 0.9% IV HAMMAD PRN Hypotension Calcium Gluconate 2,000 mg/ 120 mls @ 660 mls/hr 07/02/21 07:33 Sodium Chloride IV 07/02/21 07:43 ONCE ONE Metoclopramide HCl 2.5 mg 07/01/21 20:17 Metoclopramide 10 Mg/2 Ml Inj IV Q6H PRN Nausea And Vomiting Morphine Sulfate 2 mg 07/01/21 20:07 Morphine 2 Mg/1 Ml Inj IV Q4H PRN Pain, Moderate (4-6) Nifedipine 90 mg 07/01/21 20:15 07/01/21 21:47 Nifedipine Xl 90 Mg Tab PO 90 mg DAILY MARGARET Administration Ondansetron HCl 4 mg 07/01/21 20:07 Ondansetron 4 Mg/2 Ml Inj IV Q8H PRN Nausea And Vomiting Sodium Chloride 10 ml 07/01/21 22:00 07/01/21 21:50 Sodium Chloride 0.9% 10 Ml Flush Syringe IV 10 ml BID MARGARET Administration Sodium Chloride 10 ml 07/01/21 20:07 Sodium Chloride 0.9% 10 Ml Flush Syringe IV PRN PRN LINE FLUSH Valsartan 160 mg 07/01/21 20:20 07/01/21 21:47 Valsartan 160mg Tab PO 160 mg BID MARGARET Administration
[2021-07-02] MEDS ORDERED: CALCIUM ACETATE 667 MG CAP PO SCH (08:00)
[2021-07-02] MEDS ORDERED: SODIUM CHLORIDE 0.9% 100 ML IV PRN ×2 (08:14→08:17)
[2021-07-02] MEDS ORDERED: CALCIUM GLUCONATE 2,000 MG in SODIUM CHLORIDE 0.9% 100 ML IV ONE (08:30)
--- NOTE | 2021-07-02 09:30 | Electrocardiograph Report ---
[facility] Test Date: 2021-07-01 Test Time: 10:12:20 Pat Name: KARLO MEDINAODepartment: Room: A480 Gender: M Salt Cutter: JOSELYN : 1990 Requested By: CHAYITO BHAT Order Number: [id number] Reading MD: Marshal Serrano Measurements Intervals [place] Rate: 102 P: 3 MA: 168 QRS: 5 QRSD: 100 T: 101 QT: 359 QTc: 467 Interpretive Statements Sinus tachycardia Nonspecific T abnormalities, lateral leads No previous ECG available for comparison Electronically Signed On 07-02-2021 9:30:09 EDT by Marshal Serrano
--- NOTE | 2021-07-02 11:09 | Progress Note ---
Subjective Interval history: Patient was seen today for follow-up of multiple renal related issues No complaints of any chest pain pressure or shortness of breath Interdisciplinary notes that also reviewed Events of 24 hours vitals labs intake output medications were reviewed Past medical history: Reviewed Family history: Reviewed Social history: Reviewed Allergies: Reviewed Physical examination: Vitals: Reviewed HEENT: No pallor or icterus oral mucosa moist Neck: Supple no JVD no thyromegaly Chest: Bilateral clear to auscultation anteriorly Heart: Regular rate and rhythm S1-S2 heard no S3-S4 Abdomen: Soft nontender no voluntary guarding rigidity rebound Extremity: Dry skin less than 1+ peripheral edema Psychiatric: No evidence of agitation and aggression noted Dermatology: No petechial rashes Labs and x-rays: Reviewed from today Assessment and plan #End-stage renal disease: Patient is currently on maintenance hemodialysis and will receive dialysis tomorrow as well, his labs are improving he does have severe volume overload and multiple left lyte abnormality after tomorrow dialysis he may be considered for discharge to follow-up But he must receive at least 2-3 treatments per week Seen in supervised on hemodialysis as well #Medication management: Reviewed today #Electrolyte and volume: Will monitor and follow #Dialysis Access: working well at this time no issues have been noted discussed with dialysis nurse #Anemia in ESRD: To monitor hemoglobin and hematocrit periodically erythropoietin as needed, #Bone mineral disorder and secondary hyperparathyroidism: Goal phosphorus under 5-1/2 PTH under 600 Monitor phosphorus and PTH level periodically, Patient was adequately counseled and educated regarding all the renal related issues Laboratory studies, have been explained to the patient All questions were answered and simple Faroese We'll continue to follow and make recommendation for renal standpoint Objective - Vital Signs Vital signs: Vital Signs - 12hr 07/01/21 07/02/21 07/02/21 23:23 00:58 01:04 Temperature 101.8 F H Pulse Rate 108 H 107 H Respiratory 18 Rate Blood Pressure 175/121 Blood Pressure [Left] O2 Sat by Pulse 92 20 L Oximetry 07/02/21 07/02/21 07/02/21 02:08 04:00 09:11 Temperature 99.3 F 99 F Pulse Rate 107 H 89 94 H Respiratory 18 16 Rate Blood Pressure 175/121 103/60 Blood Pressure 121/77 [Left] O2 Sat by Pulse 93 95 Oximetry - Lab 07/02/21 04:41 07/02/21 04:41 Most recent lab results Calcium 8.7 mg/dL (8.4-10.2) 07/02/21 04:41 Medications & Allergies - Medications Allergies/Adverse Reactions: Allergies No Known Allergies Allergy (Unverified 05/11/20 17:51) Home Medications: Home Medications Medication Instructions Recorded Confirmed Last Taken Type Calcium Acetate 667 mg PO BID 07/01/21 07/01/21 Unknown History NIFEdipine [Nifedipine ER] 90 mg PO DAILY 07/01/21 07/01/21 Unknown History amLODIPine [Norvasc] 10 mg PO DAILY 07/01/21 07/01/21 Unknown History carvediloL [Coreg] 12.5 mg PO BID 07/01/21 07/01/21 Unknown History Active Medications: Generic Name Dose Route Start Last Admin Trade Name Freq PRN Reason Stop Dose Admin Acetaminophen 650 mg 07/01/21 20:07 Acetaminophen 325 Mg Tab PO Q4H PRN Pain MILD(1-3)/Fever >100.5/PRAKASH Calcium Acetate 667 mg 07/02/21 08:00 Calcium Acetate 667 Mg Cap PO BID@0800,1700 [facility]ET Carvedilol 12.5 mg 07/01/21 20:20 07/01/21 21:46 Carvedilol 12.5 Mg Tab PO 12.5 mg BID MARGARET Administration Clonidine HCl 0.1 mg 07/01/21 18:18 Clonidine 0.1 Mg Tab PO HAMMAD PRN Hypertension Famotidine 10 mg 07/01/21 22:00 07/01/21 21:48 Famotidine 10 Mg Tab PO 10 mg BID MARGARET Administration Heparin Sodium (Porcine) 5,000 unit 07/01/21 22:00 07/01/21 21:47 Heparin 5,000 Unit/1 Ml Vial SUB-Q 5,000 unit Q12HR MARGARET Administration Hydralazine HCl 10 mg 07/02/21 02:00 07/02/21 02:08 Hydralazine 20 Mg/1 Ml Inj IV 10 mg Q6HR PRN Administration Blood Pressure Hydromorphone HCl 0.5 mg 07/01/21 20:07 07/01/21 21:58 Hydromorphone 1 Mg/1 Ml Inj IV 0.5 mg Q3H PRN Administration Pain , Severe (7-10) Sodium Chloride 100 mls @ 999 mls/hr 07/02/21 08:17 Nacl 0.9% IV [facility]AD PRN Hypotension Metoclopramide HCl 2.5 mg 07/01/21 20:17 Metoclopramide 10 Mg/2 Ml Inj IV Q6H PRN Nausea And Vomiting Morphine Sulfate 2 mg 07/01/21 20:07 Morphine 2 Mg/1 Ml Inj IV Q4H PRN Pain, Moderate (4-6) Nifedipine 90 mg 07/01/21 20:15 07/01/21 21:47 Nifedipine Xl 90 Mg Tab PO 90 mg DAILY MARGARET Administration Ondansetron HCl 4 mg 07/01/21 20:07 Ondansetron 4 Mg/2 Ml Inj IV Q8H PRN Nausea And Vomiting Sodium Chloride 10 ml 07/01/21 22:00 07/01/21 21:50 Sodium Chloride 0.9% 10 Ml Flush Syringe IV 10 ml BID MARGARET Administration Sodium Chloride 10 ml 07/01/21 20:07 Sodium Chloride 0.9% 10 Ml Flush Syringe IV PRN PRN LINE FLUSH Valsartan 160 mg 07/01/21 20:20 07/01/21 21:47 Valsartan 160mg Tab PO 160 mg BID MARGARET Administration
[2021-07-02] MEDS: VALSARTAN 160MG TAB PO SCH (14:48)
[2021-07-02] MEDS: FAMOTIDINE 10 MG TAB PO SCH (14:48)
[2021-07-02] MEDS: carvediloL 12.5 MG TAB PO SCH (14:49)
[2021-07-02] MEDS: HEPARIN 5,000 UNIT/1 ML VIAL SUB-Q SCH (14:49)
[2021-07-02] MEDS: NIFEdipine XL 90 MG TAB PO SCH (14:49)
--- NOTE | 2021-07-02 16:43 | Discharge Summary ---
Providers - Providers Date of Admission: 07/01/21 11:18 Date of discharge: 07/02/21 Attending physician: RAMESH CARBAJAL 07/01/21 11:19 Consult to Physician [CONS] Stat Comment: Consulting Provider: MAGDI ROSE Physician Instructions: Reason For Exam: Emergent dialysis Primary care physician: [employer]GER Hospitalization Condition: Fair Disposition: 01 HOME / SELF CARE / HOMELESS - Discharge Diagnoses (1) Hypertensive emergency Status: Acute (2) End stage renal disease on dialysis Status: Chronic (3) Hyperkalemia Status: Acute (4) DVT prophylaxis Status: Acute Core Measure Documentation - Palliative Care Palliative Care/ Comfort Measures: Not Applicable - Core Measures Any of the following diagnoses?: none Exam - Constitutional Vitals: Temp Pulse Resp BP Pulse Ox 99 F 94 H 16 121/77 95 07/02/21 09:11 07/02/21 09:11 07/02/21 09:11 07/02/21 09:11 07/02/21 09:11 General appearance: Present: no acute distress, well-nourished - EENT Eyes: Present: PERRL ENT: hearing intact, clear oral mucosa - Neck Neck: Present: supple, normal ROM - Respiratory Respiratory effort: normal Respiratory: bilateral: CTA - Cardiovascular Heart Sounds: Present: S1 & S2. Absent: rub, click - Extremities Extremities: pulses symmetrical, No edema Peripheral Pulses: within normal limits - Abdominal General gastrointestinal: Present: soft, non-tender, non-distended, normal bowel sounds Male genitourinary: Present: normal - Integumentary Integumentary: Present: clear, warm, dry - Musculoskeletal Musculoskeletal: gait normal, strength equal bilaterally - Psychiatric Psychiatric: appropriate mood/affect, intact judgment & insight - Neurologic Neurologic: CNII-XII intact, moves all extremities Plan Diet: renal Follow up with: PÉREZ BAR MD [Primary Care Provider] - 7 Days MAGDI ROSE MD [Staff Physician] - 7 Days
[2021-07-02 17:39] VITALS: BP 157/98
== END 2021-07-02 18:30 | disposition home or self-care (01) ==
LOC: ED 09:45 → 4A 11:18
PROVIDERS: ADMIT Internal Medicine; ATTEND Internal Medicine
DX: J96.01 Acute respiratory failure with hypoxia (principal); I16.1 Hypertensive emergency; I12.0 Hypertensive chronic kidney disease with stage 5 chronic kidney disease or end stage renal disease; N18.6 End stage renal disease; D63.1 Anemia in chronic kidney disease; E87.5 Hyperkalemia; E87.70 Fluid overload, unspecified; E83.9 Disorder of mineral metabolism, unspecified; N25.81 Secondary hyperparathyroidism of renal origin; M85.9 Disorder of bone density and structure, unspecified; Z99.2 Dependence on renal dialysis; Z91.19 Patient's noncompliance with other medical treatment and regimen; Z79.899 Other long term (current) drug therapy; Z98.890 Other specified postprocedural states
CPT/HCPCS: 36415; 71045; 80048; 80053; 80074; 83036; 85025; 93005; 96372; 96374; 96375; 96376; 99291; G0257; G0378; J0360; J0610; J1170; J1644; J2405